=== PATIENT | female | born 1990 | race Caucasian/White ===

== ENCOUNTER → 2019-02-23 | Outpatient (CLI) | payer OTHER ==
[~2019-02-23] MED LIST: Cephalexin500 MG PO; FLUO10 PO; IBUP800 PO; Triamcinolone A15 G4 TP; Zantac150 MG PO
[2019-02-24 06:35] LABS: Candida species (DNA Probe) Positive (NEGATIVE); G. vaginalis (DNA Probe) Negative (NEGATIVE); T. vaginalis (DNA Probe) Negative (NEGATIVE)
== END | disposition home or self-care (01) ==
LOC: LAB 16:39 → LAB SHORT 16:39
PROVIDERS: Obstetrics & Gynecology
DX: N89.8 Other specified noninflammatory disorders of vagina (principal)
CPT/HCPCS: 87480; 87510; 87660

== ENCOUNTER → 2019-03-08 | Outpatient (CLI) | payer OTHER | END | disposition home or self-care (01) | LOC: LAB SHORT 15:12 → LAB 15:12 | DX: Z34.80 Encounter for supervision of other normal pregnancy, unspecified trimester (principal) | CPT/HCPCS: 87081; 87653 ==

== ENCOUNTER 2019-03-23 00:05 | Inpatient (IN) | payer OTHER ==
[~2019-03-23] VITALS: Ht 167.6 cm; Wt 80.0 kg
[~2019-03-23 00:05] MED LIST changes: -Cephalexin500 MG PO; -FLUO10 PO; -Triamcinolone A15 G4 TP; -Zantac150 MG PO
--- NOTE | 2019-03-23 08:32 | NUR ---
PT FEELS MUCH BETTER AFTER GETTING SOME SLEEP. IS HAPPY THAT SHE WILL BE ADMITTED AND ONCE STAFFING ALWAYS WILL BE RUPTURED BY DR CHIU
[2019-03-23 09:20] LABS: BASOPHILS ABSOLUTE AUTO 0.02 K/mm3 (0.00-0.23); BASOPHILS PERCENT AUTO 0 % (0-2); EOSINOPHILS ABSOLUTE AUTO 0.13 K/mm3 (0.00-0.68); EOSINOPHILS PERCENT AUTO 2 % (0-6); Hematocrit 41.1 % (33.0-51.0); Hemoglobin 13.9 g/dL (11.5-16.0); IMMATURE GRAN ABSOLUTE AUTO 0.05 K/mm3 (0.00-0.10); IMMATURE GRAN PERCENT AUTO 1 % (0-1); LYMPHOCYTES ABSOLUTE AUTO 2.37 K/mm3 (0.84-5.20); LYMPHOCYTES PERCENT AUTO 29 % (21-46); MONOCYTES PERCENT AUTO 8 % (4-13); Mean Corpuscular HGB 31.2 pg (26.0-34.0); Mean Corpuscular HGB Conc 33.8 g/dL (31.5-36.5); Mean Corpuscular Volume 92 fL (80-100); Mean Platelet Volume 10.1 fL (9.1-12.4); NEUTROPHILS ABSOLUTE AUTO 4.88 K/mm3 (1.96-9.15); NEUTROPHILS PERCENT AUTO 61 % (41-73); Platelet Count 157 K/mm3 (150-400); RDW Standard Deviation 43.7 fL (35.1-46.3); Red Blood Cell Count 4.45 M/mm3 (3.80-5.20); White Blood Cell Count 8.05 K/mm3 (4.00-11.30)
[2019-03-23] MEDS ORDERED: FLUO10 PO (11:18)
[2019-03-23] MEDS ORDERED: Zantac150 MG PO (11:18)
--- NOTE | 2019-03-23 17:50 | NUR ---
FIRST PP VOID
[2019-03-24 05:28] LABS: Hematocrit 39.2 % (33.0-51.0); Hemoglobin 13.1 g/dL (11.5-16.0); Mean Corpuscular HGB 30.8 pg (26.0-34.0); Mean Corpuscular HGB Conc 33.4 g/dL (31.5-36.5); Mean Corpuscular Volume 92 fL (80-100); Mean Platelet Volume 9.9 fL (9.1-12.4); Platelet Count 142 K/mm3 (150-400); RDW Coefficient Variation 13.3 % (11.7-14.2); RDW Standard Deviation 44.2 fL (35.1-46.3); Red Blood Cell Count 4.25 M/mm3 (3.80-5.20); White Blood Cell Count 10.11 K/mm3 (4.00-11.30)
--- NOTE | 2019-03-24 18:31 | NUR ---
DISCHARGE INSTRUCTIONS REVIEWED, SIGNS, BANDS MATCHED, QUESTIONS ANSWERED.
== END 2019-03-24 18:35 | disposition home or self-care (01) | DRG 807 ==
LOC: OBS 00:05 → BC 00:07 → OBS 08:01 → BC 08:02 → NUR 23:03 → BC 23:04
PROVIDERS: ADMIT Obstetrics & Gynecology
PROC: 10E0XZZ Delivery of Products of Conception, External Approach (ICD-10-PCS; principal; 2019-03-23)
PROC: 3E0R3BZ Introduction of Anesthetic Agent into Spinal Canal, Percutaneous Approach (ICD-10-PCS; 2019-03-23)
DX: O99.344 Other mental disorders complicating childbirth (principal); Z37.0 Single live birth; O70.1 Second degree perineal laceration during delivery; Z3A.38 38 weeks gestation of pregnancy; F32.9 Major depressive disorder, single episode, unspecified; F41.9 Anxiety disorder, unspecified
CPT/HCPCS: 36415; 51702; 59025; 85025; 85027; 85460; 96372; 99214; J1885; J2001; J2270; J2370; J2405; J2550; J2590; J7120

== ENCOUNTER 2019-04-14 00:59 | Emergency (ER) | payer OTHER ==
[~2019-04-14] VITALS: Ht 167.6 cm; Wt 70.3 kg
[~2019-04-14 00:59] MED LIST changes: +FLUO10 PO; +Zantac150 MG PO
[2019-04-14] MEDS ORDERED: Cephalexin500 MG PO (03:04)
[2019-04-14] MEDS ORDERED: Triamcinolone A15 G4 TP (03:05)
== END 2019-04-14 04:00 | disposition home or self-care (01) ==
LOC: ER 00:59
DX: N61.0 Mastitis without abscess (principal); Z88.5 Allergy status to narcotic agent; Z79.899 Other long term (current) drug therapy
CPT/HCPCS: 99283

== ENCOUNTER → 2019-12-31 | Outpatient (CLI) | payer OTHER ==
[~2019-12-31] MED LIST changes: +Cephalexin500 MG PO; +Triamcinolone A15 G4 TP
== END | disposition home or self-care (01) ==
LOC: LAB SHORT 11:52 → LAB 11:52
PROVIDERS: Obstetrics & Gynecology
DX: Z01.419 Encounter for gynecological examination (general) (routine) without abnormal findings (principal)
CPT/HCPCS: G0123

== ENCOUNTER → 2021-05-31 | Outpatient (CLI) | payer OTHER | END | disposition home or self-care (01) | LOC: LAB 15:30 → LAB SHORT 15:30 | PROVIDERS: Obstetrics & Gynecology | DX: Z01.419 Encounter for gynecological examination (general) (routine) without abnormal findings (principal) | CPT/HCPCS: G0123 ==

== ENCOUNTER → 2021-08-16 | Outpatient (CLI) | payer OTHER | END | disposition home or self-care (01) | LOC: LAB SHORT 09:39 | DX: B34.9 Viral infection, unspecified (principal) | CPT/HCPCS: 87081 ==

== ENCOUNTER → 2022-10-04 | Outpatient (CLI) | payer OTHER ==
[2022-10-05 13:54] LABS: Candida species (DNA Probe) Positive (NEGATIVE); G. vaginalis (DNA Probe) Negative (NEGATIVE); T. vaginalis (DNA Probe) Negative (NEGATIVE)
== END | disposition home or self-care (01) ==
LOC: LAB SHORT 15:42
PROVIDERS: Obstetrics & Gynecology
DX: B37.31 Acute candidiasis of vulva and vagina (principal)
CPT/HCPCS: 87480; 87510; 87660

== ENCOUNTER 2023-06-06 01:34 | Inpatient (IN) | payer BC ==
[2023-06-06] VITALS (33 sets, daily range): BP systolic 79–121; BP diastolic 46–74
[~2023-06-06] VITALS: Ht 167.6 cm; Wt 79.0 kg
[2023-06-06] MEDS ORDERED: PRENATAL TABLE1 EAC2 PO (03:21)
[2023-06-06 03:22] LABS: BASOPHILS ABSOLUTE AUTO 0.06 K/mm3 (0.00-0.23); BASOPHILS PERCENT AUTO 0 % (0-2); EOSINOPHILS ABSOLUTE AUTO 0.53 K/mm3 (0.00-0.68); EOSINOPHILS PERCENT AUTO 4 % (0-6); Hematocrit 36.6 % (33.0-51.0); Hemoglobin 12.5 g/dL (11.5-16.0); IMMATURE GRAN ABSOLUTE AUTO 0.06 K/mm3 (0.00-0.10); IMMATURE GRAN PERCENT AUTO 0 % (0-1); LYMPHOCYTES PERCENT AUTO 19 % (21-46); MONOCYTES ABSOLUTE AUTO 0.92 K/mm3 (0.16-1.47); MONOCYTES PERCENT AUTO 7 % (4-13); Mean Corpuscular HGB 28.7 pg (26.0-34.0); Mean Corpuscular HGB Conc 34.2 g/dL (31.5-36.5); Mean Corpuscular Volume 84 fL (80-100); Mean Platelet Volume 9.5 fL (9.1-12.4); NEUTROPHILS ABSOLUTE AUTO 9.21 K/mm3 (1.96-9.15); NEUTROPHILS PERCENT AUTO 69 % (41-73); Platelet Count 195 K/mm3 (150-400); RDW Coefficient Variation 13.2 % (11.7-14.2); RDW Standard Deviation 40.2 fL (35.1-46.3); Red Blood Cell Count 4.35 M/mm3 (3.80-5.20); White Blood Cell Count 13.38 K/mm3 (4.00-11.30)
--- NOTE | 2023-06-06 09:35 | NUR ---
"Spiritual Care | Pt. request Pt. is awake in bed and welcomes my visit. Spouse is present. Pt. is pleasant. Facilitate conversation regarding the nature of the Pts. delivery and timing. Pt. displays evidence of being fully enaged, aware and at peace. Prayed with Pt. and spouse. 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
--- NOTE | 2023-06-06 23:00 | NUR ---
pt had vistors, no needs at this time.
[2023-06-07 00:16] VITALS: BP 110/76
[2023-06-07 04:47] VITALS: BP 110/70
--- NOTE | 2023-06-07 04:48 | NUR ---
pts appears to be sleeping, arm over eyes. lights off.
[2023-06-07 08:16] VITALS: BP 104/64
[2023-06-07 12:42] VITALS: BP 111/68
[2023-06-07 15:41] VITALS: BP 114/69
== END 2023-06-07 16:00 | disposition home or self-care (01) | DRG 807 ==
LOC: OBS 01:34 → BC 01:35 → OBS 02:51 → BC 02:53
PROVIDERS: ADMIT Obstetrics & Gynecology
PROC: 10E0XZZ Delivery of Products of Conception, External Approach (ICD-10-PCS; principal; 2023-06-06)
PROC: 3E0R3BZ Introduction of Anesthetic Agent into Spinal Canal, Percutaneous Approach (ICD-10-PCS; 2023-06-06)
PROC: 00HU33Z Insertion of Infusion Device into Spinal Canal, Percutaneous Approach (ICD-10-PCS; 2023-06-06)
DX: O60.14X0 Preterm labor third trimester with preterm delivery third trimester, not applicable or unspecified (principal); Z37.0 Single live birth; O99.344 Other mental disorders complicating childbirth; F41.8 Other specified anxiety disorders; Z3A.36 36 weeks gestation of pregnancy; Z98.890 Other specified postprocedural states; Z88.5 Allergy status to narcotic agent; O71.82 Other specified trauma to perineum and vulva
CPT/HCPCS: 36415; 51702; 59025; 85025; 86850; 86900; 86901; 99214; A9270; J1885; J2590; J7120

== ENCOUNTER 2023-07-23 08:22 | Day surgery (SDC) | payer BC ==
[~2023-07-23] VITALS: Ht 170.2 cm; Wt 76.0 kg
[2023-07-23] VITALS (8 sets, daily range): BP systolic 110–117; BP diastolic 72–83
[~2023-07-23 08:22] MED LIST changes: +PRENATAL TABLE1 EAC2 PO; +VITAMIN D310 MC4 PO; +[UNRECOGNIZED DRUG - OTHER] PO
--- NOTE | 2023-07-23 09:24 | NUR ---
PRE-OP DSU NOTE PT A&OX4, BREATHING RA, NO ACUTE CONCERNS. SISTER AND AT BEDSIDE. Ambulatory in Day Surgery Patient confirms NPO status and agrees with scheduled surgery. Patient States Post-Procedure ride home has been arranged. Pre-Op teaching done. Pt verbalizes understanding. ALL PT BELONGINGS PLACED IN BAG BELOW STRETCHER.
--- NOTE | 2023-07-23 11:06 | NUR ---
Spiritual Care Family Support Pt. is still in recovery. Sat with spouse and Pts. sister. Theraputic listening and empathy is applied. Rapport is established. Spouse is called back to Pt. in recovery.
--- NOTE | 2023-07-23 11:13 | NUR ---
Patient up to Ambulate independently. Gait steady. Discharge instructions reviewed with patient. Patient verbalizes understanding. Copy given to patient to take home. Patient States Post-Procedure ride home has been arranged. Discharged via wheelchair to private car for ride home.
== END 2023-07-23 11:10 | disposition home or self-care (01) ==
LOC: ORSCMMR 08:22 → ORD 10:15 → ORSCMMR 11:10 → ORD 07-28 12:30
PROVIDERS: Obstetrics & Gynecology
PROC: 0UT74ZZ Resection of Bilateral Fallopian Tubes, Percutaneous Endoscopic Approach (ICD-10-PCS; principal; 2023-07-23 10:15)
DX: Z30.2 Encounter for sterilization (principal)
CPT/HCPCS: 88302; J1100; J1885; J2371; J2405; J2704; J3010; J7120

== ENCOUNTER → 2024-08-12 | Outpatient (CLI) | payer OTHER | LOC: LAB 13:27 → PLD 13:27 → LAB SHORT 13:27 | DX: N92.4 Excessive bleeding in the premenopausal period (principal) | CPT/HCPCS: 88305 ==